=== PATIENT | male | born 1990 | race African-American/Black ===

== ENCOUNTER 2019-05-04 14:55 | Emergency (ER) | payer SELFPAY ==
[~2019-05-04] VITALS: Ht 170.2 cm; Wt 97.7 kg
[2019-05-04 14:58] VITALS: BP 139/87; TEMP 99.5
[2019-05-04] MEDS ORDERED: NORCO 325 MG-51 TAB PO (16:18)
[2019-05-04] MEDS ORDERED: CRUTCHES MC (16:18)
[2019-05-04 16:50] VITALS: PULSE 95
== END 2019-05-04 16:50 | disposition home or self-care (01) ==
LOC: COL.ER 14:55
DX: S93.401A Sprain of unspecified ligament of right ankle, initial encounter (principal); F17.210 Nicotine dependence, cigarettes, uncomplicated; X50.1XXA Overexertion from prolonged static or awkward postures, initial encounter; Y92.009 Unspecified place in unspecified non-institutional (private) residence as the place of occurrence of the external cause

== ENCOUNTER 2019-11-10 11:45 | Emergency (ER) | payer SELFPAY ==
[~2019-11-10] VITALS: Ht 170.2 cm; Wt 101.4 kg
[~2019-11-10 11:45] MED LIST: CRUTCHES MC; NORCO 325 MG-51 TAB PO
[2019-11-10 11:55] VITALS: BP 125/74
[2019-11-10 13:53] VITALS: PULSE 80; TEMP 98.4
== END 2019-11-10 14:08 | disposition home or self-care (01) ==
LOC: COL.ER 11:45
DX: M54.6 Pain in thoracic spine (principal); F17.210 Nicotine dependence, cigarettes, uncomplicated